=== PATIENT | female | born 1975 | race Caucasian/White ===

== ENCOUNTER → 2016-08-06 | Outpatient (CLI) | payer BC ==
[~2016-08-06] MED LIST: NORCO 325 MG-51 TAB PO; ORTHO TRI-CYCLE1 TA2 PO; SYNTHROID0.088 MG/T PO; SYNTHROID0.1 MG/TAB PO; ULTRAM 50MG TAB50 MG PO
== END ==
LOC: MC.RAD 10:37
DX: Z12.31 Encounter for screening mammogram for malignant neoplasm of breast (principal)

== ENCOUNTER 2016-10-21 17:37 | Emergency (ER) | payer BC ==
[~2016-10-21] VITALS: Ht 157.5 cm; Wt 60.9 kg
[~2016-10-21 17:37] MED LIST changes: -SYNTHROID0.088 MG/T PO; -ULTRAM 50MG TAB50 MG PO
[2016-10-21 17:50] VITALS: BP 107/54; PULSE 66; TEMP 97.7
[2016-10-21] MEDS ORDERED: SYNTHROID0.088 MG/T PO (17:54)
[2016-10-21] MEDS ORDERED: ULTRAM 50MG TAB50 MG PO (19:02)
== END 2016-10-21 19:22 | disposition home or self-care (01) ==
LOC: COL.ER 17:37
DX: S09.90XA Unspecified injury of head, initial encounter (principal); M25.522 Pain in left elbow; M79.642 Pain in left hand; S40.812A Abrasion of left upper arm, initial encounter; V18.0XXA Pedal cycle driver injured in noncollision transport accident in nontraffic accident, initial encounter; Y92.414 Local residential or business street as the place of occurrence of the external cause; Z23 Encounter for immunization; R40.2142 Coma scale, eyes open, spontaneous, at arrival to emergency department; R40.2252 Coma scale, best verbal response, oriented, at arrival to emergency department; R40.2362 Coma scale, best motor response, obeys commands, at arrival to emergency department

== ENCOUNTER → 2017-09-15 | Outpatient (CLI) | payer BC ==
[~2017-09-15] MED LIST changes: +SYNTHROID0.088 MG/T PO; +ULTRAM 50MG TAB50 MG PO
== END ==
LOC: MC.RAD 09:49
DX: Z12.31 Encounter for screening mammogram for malignant neoplasm of breast (principal)

== ENCOUNTER → 2018-11-30 | Outpatient (CLI) | payer BC | LOC: MC.RAD 16:21 | DX: Z12.31 Encounter for screening mammogram for malignant neoplasm of breast (principal); N63.20 Unspecified lump in the left breast, unspecified quadrant ==

== ENCOUNTER → 2018-12-03 | Outpatient (CLI) | payer BC | LOC: MC.RAD 08:24 | DX: N60.02 Solitary cyst of left breast (principal) ==

== ENCOUNTER 2024-04-11 08:57 | Emergency (ER) | payer BC ==
[~2024-04-11] VITALS: Ht 157.5 cm; Wt 59.1 kg
[2024-04-11 09:10] VITALS: BP 149/78; TEMP 98
[2024-04-11] MEDS ORDERED: Rabies Immune Globulin PF 300 UNITS/2 ML VIAL IM ONE (09:45)
[2024-04-11 10:25] VITALS: PULSE 74
== END 2024-04-11 10:26 | disposition home or self-care (01) ==
LOC: COL.ER 08:57
DX: Z29.14 Encounter for prophylactic rabies immune globulin (principal)